=== PATIENT | male | born 1960 | race African-American/Black ===

== ENCOUNTER 2023-10-08 00:23 | Emergency (ER) | payer OTHER ==
[~2023-10-08] VITALS: Ht 177.8 cm; Wt 61.4 kg
[2023-10-08 00:32] VITALS: BP 153/91; PULSE 73; TEMP 98.5; O2SAT 99
[2023-10-08] MEDS: predniSONE 20 mg tablet PO ONE (00:47)
[2023-10-08 00:48] VITALS: RESP 18
[2023-10-08] MEDS: HYDROcodone/acetaminophen 5mg/325mg tablet PO ONE (00:48)
[2023-10-08] MEDS ORDERED: CEFD300C3 PO (00:55)
[2023-10-08] MEDS ORDERED: HYDR-3965 PO (00:57)
[2023-10-08] MEDS ORDERED: PRED50TA PO (00:58)
[2023-10-08] MEDS: CefTRIAXone 1000mg IM Kit (w/lidocaine diluent) IM ONE (01:24)
== END 2023-10-08 01:35 | disposition home or self-care (01) ==
LOC: ER 00:24
DX: M10.9 Gout, unspecified (principal); M25.562 Pain in left knee; Z88.1 Allergy status to other antibiotic agents; Z88.8 Allergy status to other drugs, medicaments and biological substances
CPT/HCPCS: 96372; 99283; J0696; J7512

== ENCOUNTER 2023-10-30 05:41 | Emergency (ER) | payer OTHER ==
[~2023-10-30] VITALS: Ht 177.8 cm; Wt 61.5 kg
[~2023-10-30 05:41] MED LIST: CEFD300C3 PO; HYDR-3965 PO; PRED50TA PO
[2023-10-30] MEDS: ketorolac trometh 15mg/ml vial 15 MG/ML ML IV ONE (06:32)
[2023-10-30 08:01] VITALS: PULSE 68
[2023-10-30 08:27] VITALS: BP 172/97; RESP 18; TEMP 98.1; O2SAT 99
== END 2023-10-30 08:29 | disposition home or self-care (01) ==
LOC: ER 05:41
DX: B34.9 Viral infection, unspecified (principal); Z20.822 Contact with and (suspected) exposure to COVID-19; Z88.1 Allergy status to other antibiotic agents; Z79.899 Other long term (current) drug therapy; Z79.52 Long term (current) use of systemic steroids
CPT/HCPCS: 36415; 87811; 96374; 99283; J1885

== ENCOUNTER 2023-11-02 23:43 | Emergency (ER) | payer OTHER ==
[~2023-11-02] VITALS: Ht 177.8 cm; Wt 70.5 kg
[2023-11-02 23:48] VITALS: BP 149/97; PULSE 70; RESP 14; TEMP 98.7; O2SAT 99
[2023-11-03] MEDS ORDERED: AZIT-164 PO (18:56)
== END 2023-11-03 01:48 | disposition left against medical advice (07) ==
LOC: ER 23:44
DX: J32.9 Chronic sinusitis, unspecified (principal); Z53.21 Procedure and treatment not carried out due to patient leaving prior to being seen by health care provider

== ENCOUNTER 2023-11-03 17:12 | Emergency (ER) | payer OTHER ==
[~2023-11-03] VITALS: Ht 177.8 cm; Wt 63.0 kg
[2023-11-03] MEDS ORDERED: AZIT-164 PO (18:56)
[2023-11-03 19:11] VITALS: BP 159/103; PULSE 72; RESP 18; TEMP 98; O2SAT 99
== END 2023-11-03 19:12 | disposition home or self-care (01) ==
LOC: ER 17:12
DX: J32.8 Other chronic sinusitis (principal); Z88.1 Allergy status to other antibiotic agents; Z88.8 Allergy status to other drugs, medicaments and biological substances; Z79.2 Long term (current) use of antibiotics; Z79.899 Other long term (current) drug therapy
CPT/HCPCS: 99283